=== PATIENT | male | born 1970 | race Caucasian/White ===

== ENCOUNTER 2016-07-16 09:15 | Emergency (ER) ==
[2016-07-16 09:21] VITALS: TEMP 97.2; BMI 29.9
--- NOTE | 2016-07-16 10:36 | ED.PDOC ---
Medical Screening Exam - General Information Time Seen by Physician*: 10:29 Mode of Arrival: Walk-In Information Source: Patient - History Chief Complaint: Well Check Stated Complaint: GOING TO [facility] TODAY FOR 10 DAYS. WANTS TO MAKE SURE HE IS OK. [ End ]97.2 89 16 96% 176/94. htn hepc - Review Of Systems Additional Findings: HX HTN HX HEPC Physical Exam - Physical Exam Appearance: Well-appearing Eyes: GALA, EOMI, Conjunctiva clear ENT: Ears normal, Nose normal, Oropharynx normal Neck: Supple Respiratory: Airway patent, Breath sounds clear, Breath sounds equal, Respirations nonlabored Cardiovascular: RRR, Pulses normal, No rub, No murmur GI/: Soft, Nontender, No masses, Bowel sounds normal, No Organomegaly Musculoskeletal: Normal strength, ROM intact, No edema, No calf tenderness Skin: Warm, Dry, Normal color (note abrasions left and medial scalp no ntender - injury from 2x4 when doing depmlition 3 days ago) Neurological: Sensation intact, Motor intact, Reflexes intact, Cranial nerves intact, Alert, Oriented Psychiatric: Affect appropriate, Mood appropriate Critical Care Note - Critical Care Note Total Time (mins): 0 Course - Course Vital Signs: Temp Pulse Resp BP Pulse Ox 07/16/16 09:17 97.2 F L 89 16 176/94 H 96 Departure - Departure Time of Disposition: 11:01 Disposition: HOME SELF-CARE Discharge Problem: Wellness health education, guidance, and counseling Instructions: Chronic Hypertension (ED) Condition: Good Pt referred to PMD for follow-up: Yes Additional Instructions: recommend increase in blood pressure medicaion check blood pressure weekly and record Allergies/Adverse Reactions: Allergies No Known Allergies Allergy (Verified 07/16/16 09:16) Home Medications: Ambulatory Orders Hydrochlorothiazide 25 mg PO DAILY 10/02/12 Lisinopril [Zestril] 10 mg PO DAILY 10/02/12
[2016-07-16 11:17] VITALS: BP 137/90
== END 2016-07-16 11:53 | disposition home or self-care (01) ==
LOC: ED 09:15
DX: Z00.00 Encounter for general adult medical examination without abnormal findings (principal); I10 Essential (primary) hypertension
CPT/HCPCS: 99282

== ENCOUNTER 2018-07-26 04:45 | Outpatient (CLI) ==
[2012-10-25 10:12] VITALS: TEMP 97.4
== END 2018-07-26 05:03 | disposition short-term general hospital (02) ==
LOC: AMBL 04:45
PROVIDERS: ATTEND Family Medicine
DX: R10.32 Left lower quadrant pain (principal); I10 Essential (primary) hypertension; Z87.442 Personal history of urinary calculi; T40.2X5A Adverse effect of other opioids, initial encounter

== ENCOUNTER 2023-07-16 19:20 | Observation (INO) ==
--- NOTE | 2023-07-16 20:02 | DI ---
EXAM: CHEST RADIOGRAPH TECHNIQUE: Single frontal chest radiograph. HISTORY: Weakness. COMPARISON: 05/04/2022 FINDINGS: Lungs show no consolidation, pleural effusion or pneumothorax. Cardiomediastinal silhouette and pulmonary vessels are within normal limits. Upper abdomen is unremarkable. No acute bony abnormality. IMPRESSION: 1. No acute cardiopulmonary disease.
[2023-07-16 20:04] LABS: MOLECULAR FLU A NEGATIVE BY NAAT (NEGATIVE); MOLECULAR FLU B NEGATIVE BY NAAT (NEGATIVE); SARS COV-2 RNA RAPID NAAT NEGATIVE (NEGATIVE)
[2023-07-16] MEDS: ZESTRIL PO STA (20:09)
[2023-07-16] MEDS: APRESOLINE PO STA (20:10)
--- NOTE | 2023-07-16 20:29 | ED.PDOC ---
General ED Provider: Dr. RADHA SHARIF DO Chief Complaint: Non-specific Complaint Stated Complaint: 53-year-old male presents to the ER with generalized body aches. Reports occasional cough. Recent sick contact with his friend. Unknown diagnosis. Denies earache, sore throat, chest pain, shortness of breath, abdominal pain, GI or symptoms. Reports history of hypertension. Unable to get medications as he does not have a primary care provider. Says that he used to take lisinopril. He does report headache but denies chest pain or shortness of breath otherwise. Time Seen by Provider: 07/16/23 19:20 Information Source: Patient Nursing and Triage Documentation Reviewed and Agree: Yes What is Opioid Naive?: *Opioid Naive implies the patient is not already taking opioids or not chronically receiving opioids on a daily basis. *PRN dosing is not "usually" associated with tolerance. *Patients are at higher risk of over-sedation and aspiration. What is Opioid Tolerant?: *Opioid Tolerance implies less than the expected response to an opioid. *Acquired tolerance is defined by the patient taking 60mg of oral morphine daily (or equianalgesic dose of another opioid) for 1 week or more. *Often associated with chronic pain. *May take more than usual dose to achieve desired pain control. Review of Systems Review Of Systems Constitutional: Reports Chills and Other (Generalized body aches); Denies Fever All Other Systems: Reviewed and Negative [facility] Medical History Asymptomatic hypertensive urgency I10 - Essential (primary) hypertension (ICD-10) FH: brain aneurysm Z82.49 - Family history of ischemic heart disease and other diseases of the circulatory system (ICD-10) Hepatitis C B19.20 - Unspecified viral hepatitis C without hepatic coma (ICD-10) Hospital discharge follow-up Z09 - Encounter for follow-up examination after completed treatment for conditions other than malignant neoplasm (ICD-10) HTN (hypertension) I10 - Essential (primary) hypertension (ICD-10) Hypertensive urgency I10 - Essential (primary) hypertension (ICD-10) Kidney calculi N20.0 - Calculus of kidney (ICD-10) Kidney failure, acute N17.9 - Acute kidney failure, unspecified (ICD-10) Left temporal headache R51 - Headache (ICD-10) Nephrolithiasis N20.0 - Calculus of kidney (ICD-10) Non compliance with medical treatment Z91.19 - Patient's noncompliance with other medical treatment and regimen (ICD-10) Family History FATHER Lung cancer Hypertension Alcohol abuse Cancer Elevated cholesterol Stroke SISTER Hypertension Elevated cholesterol Thyroid disease BROTHER Hypertension Alcohol abuse Stroke Mother Cancer Diabetes Hypertension Abnormal cholesterol test Social History Smoking and tobacco status: Never smoker Alcohol intake: former Year quit: 2014 Details: Drank a 6 pack of beer daily after work--"Made me angry"--so stopped.2014 Substance use type: marijuana Counseling given: Yes (Wants to try decreasing use slowly over next month; will have Case Mgmt see) Pennie/anabaptist: PENTECOSTALISM Special pennie needs: No Household members: spouse Marital status: M Lives independently: Yes Highest education level completed: 8th grade Current occupational status: employed 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; [employer]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 Leisure activites: fishing Do you think of yourself as: straight/heterosexual Current gender identity: male Seatbelt use: always Water heater temperature set < 120 degrees: Yes Working smoke detector in home: Yes Fire extinguisher in home: No Carbon monoxide detector in home: No Firearms in home: No Surgical History Hx of left knee surgery Z98.890 - Other specified postprocedural states (ICD-10) No history of previous surgery Physical Exam Physical Exam Appearance: Reports Ill-appearing, No pain distress and Well-nourished Ill-appearing: Mild Eyes: Reports GALA, EOMI and Conjunctiva clear ENT: Reports Nose normal and Oropharynx normal Neck: Supple Respiratory: Reports Airway patent, Breath sounds clear and Respirations nonlabored Cardiovascular: Reports RRR and Pulses normal GI/: Reports Soft and Nontender Musculoskeletal: Reports Normal strength, ROM intact and No edema Skin: Reports Warm, Dry and Normal color Neurological: Reports Sensation intact, Motor intact, Alert and Oriented Psychiatric: Reports Affect appropriate and Mood appropriate Interpretation EKG Interpretation EKG Interpretation By: ED Physician Time of EKG #1: 20:00 Rate: Normal Rhythm: Sinus Ectopy: None [place]: NL ST Segment: Normal Interpretation: Nonischemic EKG Course Course 07/16/23 22:17 07/16/23 22:17 Orders, Labs, Meds: Lab Review 07/16/23 07/16/23 07/16/23 19:40 22:17 23:07 WBC 5.83 RBC 5.96 Hgb 18.0 Hct 54.4 H MCV 91.3 MCH 30.2 MCHC 33.1 RDW Coeff of Guillermina 13.4 Plt Count 105 L Immature Gran % (Auto) 0.5 Neut % (Auto) 45.6 Lymph % (Auto) 23.5 [place] % (Auto) 28.0 H Eos % (Auto) 1.5 Baso % (Auto) 0.9 Neut # (Auto) 2.7 Lymph # (Auto) 1.4 [place] # (Auto) 1.6 Eos # (Auto) 0.1 Baso # (Auto) 0.1 Immature Gran # (Auto) 0.0 Sodium 129.8 L Potassium 4.11 Chloride 100.5 Carbon Dioxide 19.9 L Anion Gap 13.51 BUN 15.1 Creatinine 1.14 H Estimated GFR (MDRD) 67.00 BUN/Creatinine Ratio 13.24 Glucose 113.1 H Calcium 9.00 Total Bilirubin 1.35 H AST 63.2 H ALT 53.1 H Alkaline Phosphatase 82.3 Troponin I 0.058 NT-Pro-B Natriuret Pep 7270 H Total Protein 8.66 H Albumin 4.33 Globulin 4.33 Albumin/Globulin Ratio 1.00 Influ A Molecular Assay Negative by naat Influ B Molecular Assay Negative by naat SARS CoV-2 RNA Rapid BREE Negative Orders Category Date Time Status ADMIT OBSERVATION [PLACE PATIENT OBSERVATION] .TO ADMISSION 07/16/23 23:39 Active MEDSURG (MONITORED BED) EKG-(ED ONLY) Stat CARDIO 07/16/23 19:43 Completed EKG-(IP & OP ONLY) DAILY CARDIO 07/17/23 06:00 Ordered EKG-(IP & OP ONLY) DAILY CARDIO 07/18/23 06:00 Ordered EKG-(IP & OP ONLY) DAILY CARDIO 07/19/23 06:00 Ordered EKG-(IP & OP ONLY) Stat CARDIO 07/16/23 23:40 Ordered TELEMETRY MONITORING TELE CARE 07/16/23 23:39 Active VITALS [VITAL SIGNS] Q4HR CARE 07/17/23 02:00 Active CARDIAC DIET DIETARY 07/17/23 Breakfast Ordered CBC W/ AUTO DIFF Stat LAB 07/16/23 22:17 Completed CBC W/ AUTO DIFF Timed LAB 07/17/23 06:39 Ordered CMP [COMPREHENSIVE METABOLIC PANEL] DAILY@0600 LAB 07/17/23 06:00 Ordered CMP [COMPREHENSIVE METABOLIC PANEL] DAILY@0600 LAB 07/18/23 06:00 Ordered CMP [COMPREHENSIVE METABOLIC PANEL] Stat LAB 07/16/23 22:17 Completed COVID [SARS COV-2 RNA RAPID BREE] Stat LAB 07/16/23 19:40 Completed ED PROBNP [NT-PROBNP(ED)] Stat LAB 07/16/23 22:17 Completed FLU A & B MOLECULAR [FLU A/B MOLECULAR] Stat LAB 07/16/23 19:40 Completed PROBNP ED [NT-PROBNP(ED)] DAILY LAB 07/17/23 06:00 Ordered PROBNP ED [NT-PROBNP(ED)] DAILY LAB 07/18/23 06:00 Ordered PROBNP ED [NT-PROBNP(ED)] DAILY LAB 07/19/23 06:00 Ordered PROBNP ED [NT-PROBNP(ED)] Stat LAB 07/16/23 Ordered TROPONIN I DAILY@0600 LAB 07/17/23 06:00 Ordered TROPONIN I DAILY@0600 LAB 07/18/23 06:00 Ordered TROPONIN I Stat LAB 07/16/23 23:07 Completed Acetaminophen [Tylenol] Meds 07/16/23 20:37 Discontinued 500 mg PO ONCE STA Acetaminophen [Tylenol] Meds 07/16/23 23:43 Ordered 500 mg PO Q4-6H PRN Furosemide [Lasix] Meds 07/16/23 23:09 Discontinued 60 mg IVP ONCE STA Hydralazine HCl [Apresoline] Meds 07/16/23 20:02 Discontinued 10 mg PO ONCE STA Ketorolac Tromethamine [Toradol] Meds 07/16/23 20:37 Discontinued 30 mg IM ONCE ONE Lisinopril [Zestril] Meds 07/16/23 20:02 Discontinued 5 mg PO ONCE STA Lorazepam [Ativan] Meds 07/16/23 20:49 Discontinued 1 mg PO ONCE STA Nitroglycerin [Nitro-Bid] Meds 07/16/23 23:09 Discontinued 0.5 inch TD ONCE STA CHEST, 1V AP ONLY Stat RADS 07/16/23 19:20 Completed Medications Discontinued Medications Generic Name Dose Route Start Last Admin Trade Name Maris PRN Reason Stop Dose Admin Acetaminophen 500 mg 07/16/23 20:37 07/16/23 20:57 Acetaminophen 500 Mg Tablet PO 07/16/23 20:38 500 mg ONCE STA Administration Furosemide 60 mg 07/16/23 23:09 Furosemide Inj 100 Mg/10 Ml Vial IVP 07/16/23 23:10 ONCE STA Hydralazine HCl 10 mg 07/16/23 20:02 07/16/23 20:10 Hydralazine Hcl 10 Mg Tablet PO 07/16/23 20:03 10 mg ONCE STA Administration Ketorolac Tromethamine 30 mg 07/16/23 20:37 07/16/23 20:57 Ketorolac Tromethamine 30 Mg/Ml Vial IM 07/16/23 20:38 30 mg ONCE ONE Administration Lisinopril 5 mg 07/16/23 20:02 07/16/23 20:09 Lisinopril 5 Mg Tablet PO 07/16/23 20:03 5 mg ONCE STA Administration Lorazepam 1 mg 07/16/23 20:49 07/16/23 20:56 Lorazepam 1 Mg Tablet PO 07/16/23 20:50 1 mg ONCE STA Administration Nitroglycerin 0.5 inch 07/16/23 23:09 Nitroglycerin 1 Gm Oint TD 07/16/23 23:10 ONCE STA Vital Signs: Temp Pulse Resp BP Pulse Ox 07/16/23 19:29 97.8 F 81 20 186/137 H 97 Discharge Plan Discharge Patient Disposition: PLACED OBSERVATION Discharge Problem: Essential hypertension, Asymptomatic hypertension, Hypertensive urgency, Elevated brain natriuretic peptide (BNP) level Did you review [place] CHOC[place] for ALL controlled substances?: Not Applicable ED Provider: RADHA SHARIF Condition: Stable Physician Progress Note: 53-year-old male presents to the ER with generalized body aches. Concern for viral syndrome. Exam not consistent with otitis, pharyngitis, bronchitis, pneumonia, acute abdomen or cutaneous etiology. He does have elevated blood pressure on arrival with headache. Will treat with lisinopril and hydralazine orally. Will try to improve his blood pressure that would otherwise be asymptomatic other than his headache. He has a nonfocal neuroexam. Doubt acute neurologic syndrome. Do not feel emergent imaging of the head is necessary at this time. Will treat symptomatically in addition to obtaining viral swabs and chest x-ray as well as EKG given his blood pressure with low suspicion for acute cardiopulmonary processes to include but not limited to ACS, DE, PE, pneumothorax, dissection or tamponade. [] 2051: Blood pressure remains high. Will give a dose of benzodiazepine since the patient does seem uncomfortable although he has a negative workup otherwise. If he continues to feel poorly, may consider expanding his workup 2201: Patient remains hypertensive. He is sleeping and appears comfortable. This would otherwise be asymptomatic hypertension. He does state that he has been on lisinopril in the past. He has been unable to get his prescription therefore I will write a prescription for him. Otherwise we will check basic labs for renal function and BNP. Discussed admission versus discharge after review of these labs. 2321: Patient found to have a BNP over 7000. This is almost triple his level in April. I suspect this patient may be in a new or worsening CHF secondary to his uncontrolled hypertension. I will order topical nitroglycerin for his blood pressure as well as some Lasix. He is not requiring oxygen. Vital signs otherwise stable despite his hypertension. I discussed the case with the hospitalist service who is agreeable to admit the patient for further workup. This will be pending a troponin as this was not initially ordered as the patient denied any chest pain and had a nonischemic EKG.
[2023-07-16] MEDS: ATIVAN PO STA (20:56)
[2023-07-16] MEDS: TORADOL IM ONE (20:57)
[2023-07-16] MEDS: TYLENOL PO STA (20:57)
[2023-07-16 22:23] LABS: BASOPHILS # (AUTO) 0.1 K/uL (0-0.2); BASOPHILS % (AUTO) 0.9 % (0.0-3.0); EOSINOPHILS # (AUTO) 0.1 K/ul (0.0-0.7); EOSINOPHILS % (AUTO) 1.5 % (0.0-7.0); HEMATOCRIT 54.4 % (42.0-52.0); IMMATURE GRANULOCYTE % (AUTO) 0.5 % (0.0-5.0); LYMPHOCYTES # (AUTO) 1.4 K/uL (0.60-3.4); LYMPHOCYTES % (AUTO) 23.5 (10.0-50.0); MEAN CORPUSCULAR HEMOGLOBIN 30.2 pg (27.0-31.0); MEAN CORPUSCULAR HGB CONC 33.1 (31.8-35.4); MEAN CORPUSCULAR VOLUME 91.3 fl (80.0-94.0); MONOCYTES # (AUTO) 1.6 K/uL (0.4-2.0); NEUTROPHILS # (AUTO) 2.7 K/ul (2.0-6.9); NEUTROPHILS % (AUTO) 45.6 % (42.2-75.2); PLATELET COUNT 105 10^3/uL (140-440); RDW COEFFICIENT OF VARIATION 13.4 % (11.6-14.8); RED BLOOD COUNT 5.96 10^6/ul (4.70-6.10); WHITE BLOOD COUNT 5.83 K/ul (4.2-10.2)
[2023-07-16 22:44] LABS: ALANINE AMINOTRANSFERASE 53.1 U/L (0-50); ALBUMIN 4.33 g/dL (3.5-5.0); ALKALINE PHOSPHATASE 82.3 U/L (38-126); ASPARTATE AMINO TRANSFERASE 63.2 U/L (17-59); BILIRUBIN,TOTAL 1.35 mg/dL (0.2-1.3); BLOOD UREA NITROGEN 15.1 mg/dL (9-20); CARBON DIOXIDE 19.9 mmol/L (22-30.0); CHLORIDE 100.5 mmol/L (98-107); CREATININE 1.14 mg/dL (0.60-1.10); GLUCOSE 113.1 mg/dL (74-106); POTASSIUM 4.11 mmol/L (3.5-5.1); SODIUM 129.8 mmol/L (134.5-145); TOTAL PROTEIN 8.66 g/dL (6.3-8.2)
[2023-07-16] MEDS ORDERED: LASIX IVP STA (23:09)
[2023-07-16] MEDS ORDERED: TYLENOL PO PRN (23:43)
[2023-07-16] MEDS: NITRO-BID TD STA (23:44)
[2023-07-17] MEDS: LASIX IVP STA (02:25)
[2023-07-17 03:28] VITALS: BMI 27.5
[2023-07-17] MEDS: ZOFRAN 4 MG/2 ML IVP PRN (04:42)
[2023-07-17 05:43] LABS: AMPHETAMINE SCREEN,URINE POSITIVE (NEGATIVE); BARBITURATE SCREEN,URINE NEGATIVE (NEGATIVE); BENZODIAZEPINES SCREEN,URINE NEGATIVE (NEGATIVE); CANNABINOID SCREEN,URINE POSITIVE (NEGATIVE); COCAIN SCREEN,URINE NEGATIVE (NEGATIVE); METHADONE URINE SCREEN NEGATIVE (NEGATIVE); METHAMPHETAMINES SCREEN,URINE POSITIVE (NEGATIVE); OPIATE SCREEN,URINE NEGATIVE (NEGATIVE); OXYCODONE URINE SCREEN NEGATIVE (NEGATIVE); PHENCYCLIDINE SCREEN,URINE NEGATIVE (NEGATIVE); TRICYCLIC ANTIDEPRESSANTS URIN NEGATIVE (NEGATIVE)
[2023-07-17 06:53] LABS: BASOPHILS # (AUTO) 0.1 K/uL (0-0.2); EOSINOPHILS % (AUTO) 0.4 % (0.0-7.0); HEMATOCRIT 56.3 % (42.0-52.0); HEMOGLOBIN 18.7 g/dl (14.0-18.0); IMMATURE GRANULOCYTE % (AUTO) 0.6 % (0.0-5.0); LYMPHOCYTES # (AUTO) 1.5 K/uL (0.60-3.4); LYMPHOCYTES % (AUTO) 29.2 (10.0-50.0); MEAN CORPUSCULAR HEMOGLOBIN 30.5 pg (27.0-31.0); MEAN CORPUSCULAR HGB CONC 33.2 (31.8-35.4); MEAN CORPUSCULAR VOLUME 91.7 fl (80.0-94.0); MONOCYTES # (AUTO) 1.9 K/uL (0.4-2.0); MONOCYTES % (AUTO) 36.1 (0-10); NEUTROPHILS # (AUTO) 1.7 K/ul (2.0-6.9); NEUTROPHILS % (AUTO) 32.7 % (42.2-75.2); PLATELET COUNT 108 10^3/uL (140-440); RDW COEFFICIENT OF VARIATION 13.6 % (11.6-14.8); RED BLOOD COUNT 6.14 10^6/ul (4.70-6.10); WHITE BLOOD COUNT 5.21 K/ul (4.2-10.2)
[2023-07-17 07:00] LABS: ALANINE AMINOTRANSFERASE 57.8 U/L (0-50); ALBUMIN 4.32 g/dL (3.5-5.0); ALKALINE PHOSPHATASE 84.6 U/L (38-126); ASPARTATE AMINO TRANSFERASE 69.3 U/L (17-59); BILIRUBIN,TOTAL 1.07 mg/dL (0.2-1.3); BLOOD UREA NITROGEN 23.7 mg/dL (9-20); CALCIUM 9.08 mg/dL (8.4-10.2); CARBON DIOXIDE 24.2 mmol/L (22-30.0); CREATININE 1.47 mg/dL (0.60-1.10); GLUCOSE 130.8 mg/dL (74-106); SODIUM 134.6 mmol/L (134.5-145); TOTAL PROTEIN 8.45 g/dL (6.3-8.2)
[2023-07-17 07:12] LABS: TROPONIN I 0.064 ng/ml (0.0000-0.120)
[2023-07-17 07:18] LABS: POTASSIUM 3.88 mmol/L (3.5-5.1)
[2023-07-17 07:23] LABS: CHLORIDE 100.4 mmol/L (98-107)
[2023-07-17 08:47] LABS: CHOLESTEROL 140.8 mg/dL (0-200); HDL CHOLESTEROL 32.1 mg/dL (35-60); TRIGLYCERIDES 69.4 mg/dL (0-150)
[2023-07-17 10:22] LABS: BILIRUBIN,URINE Negative (NEGATIVE); CLARITY,URINE Clear (CLEAR); COLOR,URINE Yellow (YELLOW); GLUCOSE, URINE (UA) Negative (NEGATIVE); KETONES,URINE Trace (NEGATIVE); LEUKOCYTE ESTERASE ,URINE Negative (NEGATIVE); NITRITE,URINE Negative (NEGATIVE); PH,URINE 5.5 (5-9); PROTEIN,URINE 1+ (NEGATIVE); URINE, BLOOD Negative (NEGATIVE); UROBILINOGEN,URINE 0.2 (0.2)
[2023-07-17 10:39] LABS: URINE RBC, MICROSCOPIC 0-2 (0-2); URINE WBC, MICROSCOPIC 0-2 (0-2)
[2023-07-17 10:40] VITALS: RESP 16
[2023-07-17 10:40] LABS: BACTERIA,URINE TRACE (NOT PRESENT); MUCUS,URINE TRACE (NOT PRESENT); SPERM,URINE TRACE (NOT PRESENT)
--- NOTE | 2023-07-17 12:23 | ECHO2D ---
Date of Exam: 07/17/2023 Ordering Physician: MARGY KOVACS Room #: 115 Reason for Echo: HYPERTENSIVE, ELEVATED BNP M-Mode Normal Adult Results LV Dimensions Normal Adult Results AoV Opening excursions >1.6 >1.6 LVEDD-base- 3.5-5.8 4.4 Ao root dimensions 2.0-3.7 4.0 LVESD-base- 3.1-4.6 L. Atrium dimensions 1.9-3.8 3.8 Post. Wall thickness 0.8-1.1 1.4 IV septum (thickness) 0.7-1.2 2.1 Post. Wall excursion 0.72-1.3 NORMAL Septal motion ------- Systolic motion R. Ventricular cavity 1.5-2.0 3.5 LVEF 60% 42% Paradoxical septal wall motion MAYBE 2-D : MARKED SEPTAL HYPERTROPHY WITH STIFF SEPTUM--VALVES NORMAL, NORMAL LEFT VENTRICLE SIZE --NO EFFUSION, NO THROMBUS COLOR FLOW: SPECTRAL DOPPLER--MITRAL VALVE FLOW A WAVE > E WAVE M-MODE: MV: NORMAL AV: NORMAL TV: NORMAL PV: normal CHAMBER SIZE: DILATED AORTIC ROOT WALL MOTION: STIFF SEPTUM--MAYBE PARADOXICAL PERICARDIUM: NORMAL INTERPRETATION: 1. ASYMMETRICAL SEVERE SEPTAL HYPERTROPHY (KEI) WITH NO EVIDENCE OF OBSTRUCTION to OUTFLOW tract 2. LEFT VENTRICULAR HYPERTROPHY (SEVERE) 3. DILATED AORTIC ROOT (MILD) 4. EVIDENCE OF DIASTOLIC DYSFUNCTION 5. ABNORMAL SEPTAL MOTION --STIFF AND MAYBE PARADOXICAL RECOMMEND: COMPLETE ECHO WITH DOPPLER / COLOR FLOW MTDD
--- NOTE | 2023-07-17 12:41 | PCM.SS ---
Provider Provider: ANA MUNGUIA PA-C, [facility] Ad[facility] Date Admission Date: 07/16/23 Discharge Date Discharge Date: 07/17/23 Chief Complaint Reason For Visit: CHF, HTN URGENCY History of Present Illness History of Present Illness: Admitted 07/17/23 00:21, this 53 year old /WHITE/M with pmhx of diastolic heart failure, hypertension, hx of drug use, medical noncompliance, hepatitis C who presented to the ED for cc of body aches. Patient felt like he may have the flu. He had been exposed to someone to had similar symptoms but no definitive diagnosis. CXR and swabs were negative. Labs unremarkable except for some mild CKD and elevated BNP of 7200, last year it was 2600. Patient was also very hypertensive. He has not taken his medications in several months. Patient was given oral medications without improvement. He was admitted to med surg. Pt states he's feeling better today. He does note some urinary frequency, otherwise no sob, cp, peripheral edema. Ua negative except for hematuria, which appears to be chronic. Pt states he's been let go from his PCP office. He follows with cardiology in [place] but unsure of physician or when the last time he's been. [facility] Medical History FH: brain aneurysm Z82.49 - Family history of ischemic heart disease and other diseases of the circulatory system (ICD-10) Nephrolithiasis N20.0 - Calculus of kidney (ICD-10) Asymptomatic hypertensive urgency I10 - Essential (primary) hypertension (ICD-10) Hospital discharge follow-up Z09 - Encounter for follow-up examination after completed treatment for conditions other than malignant neoplasm (ICD-10) Left temporal headache 05/17/2019 s/p work injury w/ board hitting him in head w/ 3 cm superficial laceration; CT Head w/o contrast =negative. R51 - Headache (ICD-10) Non compliance with medical treatment 05/18/2019 HTN meds not taken since 2016. Z91.19 - Patient's noncompliance with other medical treatment and regimen (ICD-10) Kidney calculi summer 2018 N20.0 - Calculus of kidney (ICD-10) Kidney failure, acute N17.9 - Acute kidney failure, unspecified (ICD-10) Hepatitis C Diagnosed 2016; no treatment; no symptoms B19.20 - Unspecified viral hepatitis C without hepatic coma (ICD-10) HTN (hypertension) I10 - Essential (primary) hypertension (ICD-10) Hypertensive urgency 05/18/2019 BP 223/134 ---HTN w/o medical tx for LT I10 - Essential (primary) hypertension (ICD-10) Surgical History Hx of left knee surgery Z98.890 - Other specified postprocedural states (ICD-10) No history of previous surgery Family History FATHER Lung cancer Hypertension Alcohol abuse Cancer Elevated cholesterol Stroke SISTER Hypertension Elevated cholesterol Thyroid disease BROTHER Hypertension Alcohol abuse Stroke Mother Cancer Diabetes Hypertension Abnormal cholesterol test Social History Smoking and tobacco status: Never smoker Alcohol intake: former Year quit: 2014 Details: Drank a 6 pack of beer daily after work--"Made me angry"--so stopped.2014 Substance use type: marijuana Counseling given: Yes (Wants to try decreasing use slowly over next month; will have Case Mgmt see) Pennie/gnosticist: [facility] Special pennie needs: No Household members: spouse Marital status: M Lives independently: Yes Highest education level completed: 8th grade Current occupational status: employed 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; [employer]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 Leisure activites: fishing Do you think of yourself as: straight/heterosexual Current gender identity: male Seatbelt use: always Water heater temperature set < 120 degrees: Yes Working smoke detector in home: Yes Fire extinguisher in home: No Carbon monoxide detector in home: No Firearms in home: No Medications Mecications: Medications at Discharge (Home Meds & RX) lisinopril 40 mg tablet 40 mg PO QDAY #30 tabs 10/22/22 Allergies Allergies Allergy/AdvReac Type Severity Reaction Status Date / Time No Known Allergies Allergy Verified 07/16/23 20:11 Review of Systems Constitutional: Reports Chills; Denies Fever or Fatigue Head: Reports Normocephalic and Atraumatic Cardiovascular: Denies Chest pain, Chest Pressure or Edema Respiratory: Denies Cough or Shortness of air Gastrointestinal: Denies Nausea, Vomiting, Diarrhea, Abdominal pain or Melena Genitourinary: Reports Frequency Dermatologic: Denies Rashes Neurological: Denies Headache, Dizziness, Syncope, Weakness or Speech difficulty Physical Examination Appearance: Positive No Apparent Distress and Alert and Oriented x3 Head: Positive Normocephalic and Atraumatic Neck: Positive Supple, Non-Tender and Trachea Midline Heart: Positive RRR Respiratory: Positive Airway patent, Breath Sounds Clear, Bilaterally, Breath Sounds Equal and Respirations Nonlabored GI/: Positive Soft, Nontender, Bowel sounds normal and No Distention Extremities: Negative Edema Neurological: Positive Cranial nerves intact, Alert and Oriented Psychiatric: Positive Normal Judgement, Normal Insight, Affect Appropriate and Mood Appropriate Vital Signs (Last 4 Hours) Vital Signs Last 4 Hours: Vital Signs: Last 4 Hours 07/17/23 08:45 07/17/23 10:00 07/17/23 10:00 Temperature 97.0 F L Temperature Source Temporal Artery Scan Pulse Rate 95 Respiratory Rate 16 Blood Pressure 143/99 H Blood Pressure Mean 113 Blood Pressure Location Left Arm O2 Sat by Pulse Oximetry 95 Oxygen Delivery Method Room Air Room Air Room Air 07/17/23 11:00 07/17/23 12:00 Temperature Temperature Source Pulse Rate Respiratory Rate Blood Pressure Blood Pressure Mean Blood Pressure Location O2 Sat by Pulse Oximetry Oxygen Delivery Method Room Air Room Air Labs This Visit Labs This Visit: Labs This Visit 07/16/23 07/16/23 07/16/23 19:40 22:17 23:07 WBC 5.83 RBC 5.96 Hgb 18.0 Hct 54.4 H MCV 91.3 MCH 30.2 MCHC 33.1 RDW Coeff of Guillermina 13.4 Plt Count 105 L Immature Gran % (Auto) 0.5 Neut % (Auto) 45.6 Lymph % (Auto) 23.5 Dodge % (Auto) 28.0 H Eos % (Auto) 1.5 Baso % (Auto) 0.9 Neut # (Auto) 2.7 Lymph # (Auto) 1.4 Dodge # (Auto) 1.6 Eos # (Auto) 0.1 Baso # (Auto) 0.1 Immature Gran # (Auto) 0.0 Sodium 129.8 L Potassium 4.11 Chloride 100.5 Carbon Dioxide 19.9 L Anion Gap 13.51 BUN 15.1 Creatinine 1.14 H Estimated GFR (MDRD) 67.00 BUN/Creatinine Ratio 13.24 Glucose 113.1 H Hemoglobin A1c Calcium 9.00 Total Bilirubin 1.35 H AST 63.2 H ALT 53.1 H Alkaline Phosphatase 82.3 Troponin I 0.058 NT-Pro-B Natriuret Pep 7270 H Total Protein 8.66 H Albumin 4.33 Globulin 4.33 Albumin/Globulin Ratio 1.00 Triglycerides Cholesterol LDL Cholesterol, Calc VLDL Cholesterol HDL Cholesterol Cholesterol/HDL Ratio Urine Color Urine Clarity Urine pH Ur Specific [place] Urine Protein Urine Glucose (UA) Urine Ketones Urine Blood Urine Nitrite Urine Bilirubin Urine Urobilinogen Ur Leukocyte Esterase Urine Microscopic RBC Urine Microscopic WBC Ur Squamous Epith Cells Urine Bacteria Hyaline Casts Urine Mucus Urine Sperm Urine Opiates Screen Ur Oxycodone Screen Urine Methadone Screen Ur Barbiturates Screen U Tricyclic Antidepress Ur Phencyclidine Scrn Ur Amphetamine Screen U Methamphetamines Scrn U Benzodiazepines Scrn Urine Cocaine Screen U Cannabinoids Screen Influ A Molecular Assay Negative by naat Influ B Molecular Assay Negative by naat SARS CoV-2 RNA Rapid BREE Negative 07/17/23 07/17/23 07/17/23 04:55 04:56 06:37 WBC 5.21 RBC 6.14 H Hgb 18.7 H Hct 56.3 H MCV 91.7 MCH 30.5 MCHC 33.2 RDW Coeff of Guillermina 13.6 Plt Count 108 L Immature Gran % (Auto) 0.6 Neut % (Auto) 32.7 L Lymph % (Auto) 29.2 Dodge % (Auto) 36.1 H Eos % (Auto) 0.4 Baso % (Auto) 1.0 Neut # (Auto) 1.7 L Lymph # (Auto) 1.5 Dodge # (Auto) 1.9 Eos # (Auto) 0.0 Baso # (Auto) 0.1 Immature Gran # (Auto) 0.0 Sodium 134.6 Potassium 3.88 Chloride 100.4 Carbon Dioxide 24.2 Anion Gap 13.88 BUN 23.7 H Creatinine 1.47 H Estimated GFR (MDRD) 50.00 BUN/Creatinine Ratio 16.12 Glucose 130.8 H Hemoglobin A1c 6.27 H Calcium 9.08 Total Bilirubin 1.07 AST 69.3 H ALT 57.8 H Alkaline Phosphatase 84.6 Troponin I 0.064 NT-Pro-B Natriuret Pep 6090 H Total Protein 8.45 H Albumin 4.32 Globulin 4.13 Albumin/Globulin Ratio 1.04 Triglycerides 69.4 Cholesterol 140.8 LDL Cholesterol, Calc 95 VLDL Cholesterol 14 HDL Cholesterol 32.1 L Cholesterol/HDL Ratio 4.4 L Urine Color Yellow Urine Clarity Clear Urine pH 5.5 Ur Specific [place] 1.025 Urine Protein 1+ H Urine Glucose (UA) Negative Urine Ketones Trace H Urine Blood Negative Urine Nitrite Negative Urine Bilirubin Negative Urine Urobilinogen 0.2 Ur Leukocyte Esterase Negative Urine Microscopic RBC 0-2 Urine Microscopic WBC 0-2 Ur Squamous Epith Cells 2-5 Urine Bacteria Trace Hyaline Casts 2-5 Urine Mucus Trace Urine Sperm Trace Urine Opiates Screen Negative Ur Oxycodone Screen Negative Urine Methadone Screen Negative Ur Barbiturates Screen Negative U Tricyclic Antidepress Negative Ur Phencyclidine Scrn Negative Ur Amphetamine Screen Positive H U Methamphetamines Scrn Positive H U Benzodiazepines Scrn Negative Urine Cocaine Screen Negative U Cannabinoids Screen Positive H Influ A Molecular Assay Influ B Molecular Assay SARS CoV-2 RNA Rapid BREE Imaging Imaging: EXAM: CHEST RADIOGRAPH TECHNIQUE: Single frontal chest radiograph. HISTORY: Weakness. COMPARISON: 05/04/2022 FINDINGS: Lungs show no consolidation, pleural effusion or pneumothorax. Cardiomediastinal silhouette and pulmonary vessels are within normal limits. Upper abdomen is unremarkable. No acute bony abnormality. IMPRESSION: 1. No acute cardiopulmonary disease. Date of Exam: 07/17/2023Ordering Physician: MARGY KOVACS Room #: 115 Reason for Echo: HYPERTENSIVE, ELEVATED BNP M-Mode Normal Adult Results LV Dimensions Normal Adult Results AoV Opening excursions >1.6 >1.6 LVEDD-base- 3.5-5.8 4.4 Ao root dimensions 2.0-3.7 4.0 LVESD-base- 3.1-4.6 L. Atrium dimensions 1.9-3.8 3.8 Post. Wall thickness 0.8-1.1 1.4 IV septum (thickness) 0.7-1.2 2.1 Post. Wall excursion 0.72-1.3 NORMAL Septal motion ------- Systolic motion R. Ventricular cavity 1.5-2.0 3.5 LVEF 60% 42% Paradoxical septal wall motion MAYBE 2-D : MARKED SEPTAL HYPERTROPHY WITH STIFF SEPTUM--VALVES NORMAL, NORMAL LEFT VENTRICLE SIZE --NO EFFUSION, NO THROMBUS COLOR FLOW: SPECTRAL DOPPLER--MITRAL VALVE FLOW A WAVE > E WAVE M-MODE: MV: NORMAL AV: NORMAL TV: NORMAL PV: CHAMBER SIZE: DILATED AORTIC ROOT WALL MOTION: STIFF SEPTUM--MAYBE PARADOXICAL PERICARDIUM: NORMAL INTERPRETATION: 1. ASYMMETRICAL SEVERE SEPTAL HYPERTROPHY (KEI) WITH NO EVIDENCE OF OBSTRUCTION OUTFLOW WALL 2. LEFT VENTRICULAR HYPERTROPHY (SEVERE) 3. DILATED AORTIC ROOT (MILD) 4. EVIDENCE OF DIASTOLIC DYSFUNCTION 5. ABNORMAL SEPTAL MOTION --STIFF AND MAYBE PARADOXICAL Review Review Statement: I have independently reviewed and interpreted the labs/EKGs/imaging that were ordered by the ER provider. I have reviewed all outside records that are available currently in our EMR including imaging/notes/labs from previous visits. Plan Reccomendations/Plan: 1. Hypertensive urgency - BP 186/137 in ER. Pt has been without his medications for many months. Improved once upon the floor. Check echo. 2. Hx of diastolic heart failure - BNP elevated, although not acutely exacerbated. Check echo. 3. Hypertension - Will need started on orals 4. Drug abuse - UDS positive for meth, and has been in the past. He states last use was 1 month ago. Patient had echo showing EF of 41% with stiff septum. With EF decreased, will start on asa 81 mg, metoprolol, and shai inhibitor. Will start with this and encourage patient to f/u with pcp and cardiology for further adjustment and addition of medications. He is noncompliant and likely won't monitor BP at home or f/u for labs therefore will avoid adding spironolactone, jardiance, etc at this time. Discussed his drug use could be contributing to his heart failure as well, and encouraged cessation. A1c and lipid unremarkable. Pt tolerated PO diet. Will discharge to home. F/u with Dr. Becker with [facility] as scheduled. Discharge diagnoses: 1. Hypertensive urgency - resolved 2. Heart failure mixed with diastolic dysfunction and mildly decreased EF 3. Hypertension 4. Drug abuse 5. Medical noncompliance Additional Planning: Case discussed with ED Physician, Dr. Zaragoza. DVT Prophylaxis: Ambulation Advanced Care Plannin minutes spent discussing advance care planning. FULL CODE Admit to: Obs Discussed Plan of Care with Dr. Anjel Mason. If patient discharged with Left Ventricular Systolic Dysfunction: Discharged with a beta karen? Y If no, why not? [] Discharged with an shai/arb? Y If no, why not? [] Review With Patient Reviewed with Patient and Family: Patient and family have been counseled on condition and care plan and have no immediate questions. I have personally discussed and reviewed the patient's visit/current labs/imaging/decision making with Dr. Anjel Mason, my supervising attending. Total number of minutes spent with patient [ 85 ] min. More than 50% of the time spent with this patient was devoted to counseling and coordination of care. Time of Admission:07/16/23 5289 Time of Discharge: 07/17/23 0915 Discharge Plan Discharge Discharge Orders: Discharge Patient (ONCE); Ordered 07/17/23 Ordered By: ANA MUNGUIA Activity Restrictions/Additional Instructions: DISCHARGE TO HOME F/U WITH PCP AND CARDIOLOGY SCHEDULED DX: HYPERTENSION, HEART FAILURE (NOT IN EXACERBATION) DIET: HEART HEALTH ACTIVITY: TOLERATED PHARMACY: [facility] MONITOR YOUR BLOOD PRESSURE AT HOME FOLLOW UP WITH PCP REGARDING BLOOD IN YOUR URINE Patient Disposition: HOME SELF-CARE Prescriptions: New aspirin 81 mg capsule 81 mg PO DAILY Qty: 30 0RF metoprolol tartrate 25 mg tablet 12.5 mg PO BID Qty: 15 0RF lisinopril 10 mg tablet 10 mg PO DAILY Qty: 30 0RF Discontinued lisinopril 40 mg tablet 40 mg PO QDAY Qty: 30 0RF Did you review [place] COMPENSATOR WORKER for ALL controlled substances?: Not Applicable Discussed opioids are addictive and Narcan is available by prescription or from pharmacy.: No Condition: Stable Referrals: HARISH BECKER [REFERRING] - 07/29/23 1:00 pm
[2023-07-17 13:55] VITALS: BP 153/123; PULSE 92; TEMP 98.2
== END 2023-07-17 14:20 | disposition home or self-care (01) ==
LOC: MEDSURG B 19:20 → ED 19:20 → MEDSURG B 07-17 01:33
PROVIDERS: ADMIT Hospitalist; ATTEND Physician Assistant
DX: Z20.822 Contact with and (suspected) exposure to COVID-19; I50.31 Acute diastolic (congestive) heart failure; I10 Essential (primary) hypertension; R79.89 Other specified abnormal findings of blood chemistry; R35.0 Frequency of micturition; R51.9 Headache, unspecified; F15.10 Other stimulant abuse, uncomplicated; B19.20 Unspecified viral hepatitis C without hepatic coma; I16.0 Hypertensive urgency; Z91.198 Patient's noncompliance with other medical treatment and regimen for other reason